=== PATIENT | female | born 2000 | race Caucasian/White ===

== ENCOUNTER 2022-02-18 23:16 | Emergency (ER) | payer SELFPAY ==
[~2022-02-18] VITALS: Ht 172.7 cm; Wt 70.0 kg
[2022-02-19 00:49] LABS: URINE HCG NEGATIVE (NEG)
[2022-02-19 00:58] LABS: ALANINE AMINOTRANSFERASE 252 U/L (12-78); ALBUMIN 3.7 G/DL (3.4-5.0); ALKALINE PHOSPHATASE 438 IU/L (46-116); ANION GAP 8 (8-16); ASPARTATE AMINO TRANSFERASE 142 U/L (10-37); BILIRUBIN,TOTAL 6.3 MG/DL (0.1-1.0); BLOOD UREA NITROGEN 11 MG/DL (7-18); BUN/CREATININE RATIO 13.1 (6.6-38.0); CALCIUM 9.4 MG/DL (8.5-10.1); CHLORIDE 99 MMOL/L (99-107); CREATININE 0.84 MG/DL (0.40-0.90); POTASSIUM 3.6 MMOL/L (3.5-5.1); SODIUM 134 MMOL/L (135-145); eGFR 85 ML/MIN
[2022-02-19 01:01] LABS: BASOPHILS # (AUTO) 0.1 X10'3 (0-0.2); BASOPHILS % (AUTO) 0.5 % (0-1); EOSINOPHILS # (AUTO) 0.1 X10'3 (0-0.9); NEUTROPHILS # (AUTO) 2.8 X10'3 (1.8-7.7)
[2022-02-19 01:03] LABS: EOSINOPHILS % (AUTO) 0.4 % (0-6); HEMATOCRIT 40.4 % (35.0-45.0); HEMOGLOBIN 13.6 g/dl (12.0-16.0); MEAN CORPUSCULAR HEMOGLOBIN 28.7 PG (27.0-31.0); MEAN CORPUSCULAR HGB CONC 33.7 g/dL (33.0-36.5); MEAN CORPUSCULAR VOLUME 85.1 FL (78-98); MONOCYTES # (AUTO) 1.1 X10'3 (0-0.9); MONOCYTES % (AUTO) 7.5 % (2-12); NEUTROPHILS % (AUTO) 18.6 % (42-75); PLATELET COUNT 237 X10'3 (140-440); RED BLOOD COUNT 4.75 X10'6 (4.20-5.60); RED CELL DISTRIBUTION WIDTH 13.8 % (11.5-14.5); WHITE BLOOD COUNT 15.1 X10'3 (4.5-11.0)
[2022-02-19 01:14] LABS: ALBUMIN/GLOBULIN RATIO 0.7 (1.1-1.5); GLUCOSE 105 MG/DL (70-104); TOTAL PROTEIN 8.8 G/DL (6.4-8.2)
[2022-02-19 01:19] LABS: CLARITY,URINE CLEAR (Clear); GLUCOSE, URINE NEGATIVE (Neg); KETONES,URINE 15 mg/dl (Neg); LEUKOCYTE ESTERASE ,URINE TRACE (Neg); NITRITES, URINE NEGATIVE (Neg); OCCULT BLOOD,URINE NEGATIVE (Neg); PROTEIN,URINE NEGATIVE (Neg)
[2022-02-19 01:24] LABS: COLOR,URINE AMBER (Yellow); UA COLLECTION TYPE CLN CATCH MIDSTREAM
[2022-02-19 01:26] LABS: RBC,URINE NONE SEEN /HPF (0-2); WBC,URINE 0-4 /HPF (0-4)
[2022-02-19 01:27] LABS: BACTERIA,URINE FEW /HPF (Neg); MUCUS STRANDS FEW /LPF (Neg); SQUAMOUS EPITHELIAL CELL,UR MODERATE /LPF (FEW)
[2022-02-19] MEDS ORDERED: normal saline 1000ML IV soln IVB ONE (01:55)
[2022-02-19 02:29] LABS: PLATELET ESTIMATE NORMAL; TOTAL CELLS COUNTED 100
[2022-02-19 03:13] LABS: ETHANOL < 0.010 GM/DL (0.0-0.010); LIPASE 225 U/L (73-393)
[2022-02-19 03:20] LABS: ACETAMINOPHEN < 2.0 UG/ML (10-30)
[2022-02-19 03:46] LABS: URINE AMPHETAMINE SCREEN NEGATIVE (Neg); URINE BARBITUATE SCREEN NEGATIVE (Neg); URINE BENZODIAZEPINES SCREEN NEGATIVE (Neg); URINE CANNABINOID SCREEN NEGATIVE (Neg); URINE COCAINE SCREEN NEGATIVE (Neg); URINE METHADONE SCREEN NEGATIVE (Neg); URINE OPIATE SCREEN NEGATIVE (Neg); URINE PHENCYCLIDINE SCREEN NEGATIVE (Neg)
[2022-02-19] MEDS ORDERED: iohexol 300mg/ml 100ml inj. ONE (04:02)
[2022-02-19 04:05] LABS: BILIRUBIN,DIRECT 6.2 MG/DL (0-0.3)
[2022-02-19] MEDS ORDERED: NO HOME MEDS (05:03)
[2022-02-19 06:08] VITALS: BP 118/68
[2022-02-20 16:44] LABS: MONOTEST POSITIVE (Neg)
[2022-02-22 09:45] LABS: HBSAG SCREEN Negative (Negative); HEP A AB, IGM Negative (Negative); HEP B CORE AB, TOT Negative (Negative); HEPATITIS C ANTIBODY <0.1 s/co ratio (0.0-0.9)
== END 2022-02-19 06:09 | disposition home or self-care (01) ==
LOC: VAS 23:17
DX: R17 Unspecified jaundice (principal); R11.2 Nausea with vomiting, unspecified; E80.6 Other disorders of bilirubin metabolism; R10.30 Lower abdominal pain, unspecified
CPT/HCPCS: 36415; 74177; 80053; 80305; 80320; 80329; 81001; 81025; 82248; 83605; 83690; 85007; 85025; 85610; 86308; 86704; 86706; 87040; 87088; 96360; 99285; J3490; J7030; Q9967; 86705; 86709; 86803; 87340